=== PATIENT | female | born 1950 | race Caucasian/White ===

== ENCOUNTER 2016-12-06 07:54 | Day surgery (SDC) | payer MEDICARE, BC ==
[~2016-12-06 07:54] MED LIST: RINGERS SOLUTION,LACTATED 1,000 ML IV PRN; ceFAZolin SODIUM 2 GM in DEXTROSE 5 % IN WATER 50 ML IV PRN
--- OUTSIDE RECORDS SUMMARY | 2016-12-06 07:57 | XMS REPORT | Continuity of Care Document ---
:1950 Author Organization [facility] ([facility]) Address [address] [place] [address] Phone [phone] Care Team Providers Name Role Phone Unavailable Primary Care Provider Unavailable Source Comments This disclosure is being made pursuant to the Care Everywhere program, applicable federal and state laws, and may not contain all informaitonavailable regarding this patient.[facility] ([facility]) Active Allergies and Adverse Reactions Allergen Noted Date Severity Reactions Comments Other Agent Respiratory Distress,Cardiac Reaction to Isochlor Arrhythmia Current Medications Not on file Active Problems Not on file Social History Tobacco Use Types Packs/Day Years Used Date Never Assessed Last Filed Vital Signs Vital Sign Reading Time Taken Blood Pressure 134/70 02/25/2004 10:39 AM CDT Pulse 80 02/25/2004 10:39 AM CDT Temperature 37 C (98.6 F) 02/25/2004 10:39 AM CDT Respiratory Rate - - Height - - Weight 105.298 kg (232 lb 2.2 oz) 02/17/2005 12:31 PM CDT Body Mass Index - - Oxygen Saturation - - Plan of Care Health Maintenance Due Date Last Done Comments HCV Screening 1950 Hepatitis B Vaccine (1 of 3 - Primary Series) 1950 Tdap Vaccine 1963 Lipid Disorder Screening 1970 Td Vaccine 1970 Cervical Cancer Screening 1982 Mammogram 1992 Colonoscopy 2002 Zoster Vaccine 2012 Influenza Vaccine: Seasonal (#1) 03/29/2016 Results from Last 3 Months Not on file
[2016-12-06] MEDS ORDERED: RINGERS SOLUTION,LACTATED 1,000 ML IV ONE (08:36)
[2016-12-06] MEDS ORDERED: BUPIVACAINE HCL/EPINEPHRINE 50 ML VIAL IJ ONE (09:51)
[2016-12-06] MEDS ORDERED: RINGERS SOLUTION,LACTATED 1,000 ML IV PRN (10:29)
[2016-12-06] MEDS ORDERED: oxyCODONE HCL/ACETAMINOPHEN 1 TAB TABLET PO PRN (10:58)
[2016-12-06] MEDS ORDERED: oxyCODONE HCL/ACETAMINOPHEN 1 TAB TABLET PO ONE (11:15)
[2016-12-06 12:17] VITALS: BP 123/48
--- NOTE | 2016-12-06 20:01 | OR ---
Operative Report - Dictated Report Narrative: OPERATIVE REPORT DATE OF OPERATION: 12/06/2016 PREOPERATIVE DIAGNOSIS: Lipoma right posterior shoulder POSTOPERATIVE DIAGNOSIS: Same (pathology pending) OPERATION: Excision of lipoma the right posterior shoulder (13 x 10 x 3 cm) SURGEON: Buddy Claudio MD ANESTHESIA: GenGeovanni Angel CRNA INDICATIONS FOR PROCEDURE: The patient is a 66-year-old female with enlarging and increasingly symptomatic lipoma on the right posterior shoulder. She was initially scheduled for excision of this on 05/20/2016 however canceled. She is now brought for excision. FINDINGS: Large lipoma (pathology pending) NARRATIVE OF PROCEDURE: The patient was identified in the holding area, the surgical site was marked, and prior to the administration of anesthetic a multidisciplinary timeout was observed. The patient was placed supine and SCDs were applied. General endotracheal anesthetic was administered. The patient was then placed in the right lateral position with appropriate padding and monitoring. The right shoulder was then prepped with Betadine solution and the area around the lipoma isolated with 4 sterile towels. The remainder the patient was covered with a sterile disposable drape. A forefinger breath skin incision was outlined over the mass in the area infiltrated with 0.5% Marcaine with epinephrine. The skin incision was made sharply. Dissection was carried into subcutaneous tissue with electrocautery until a self-contained lipoma was encountered. This was gradually dissected free from the surrounding subcutaneous tissue by blunt and electrocautery dissection. The mass was delivered intact and submitted to pathology. The base of the wound was inspected and found to be hemostatic. After receiving a correct sponge needle and instrument count attention was turned to closing the wound. Subcutaneous space was approximated with interrupted sutures of 0 chromic. The skin was approximated with a running subcuticular suture of 4-0 Vicryl. The operative site was washed and dried. A dressing of Dermabond was applied. The operative procedure was terminated at this point. The patient tolerated the anesthetic and procedure well without complication. She was transferred to the recovery room and then back to ambulatory surgery awake extubated in stable condition. The patient remained stable throughout a period of postoperative observation. She denied incisional discomfort. The dressing remained dry. She was able to tolerate by mouth intake and was up without assistance. I shared the operative findings with her. She was discharged home with instructions not to engage in hazardous activity today but she may return to normal activity tomorrow and advance diet as tolerated. She is to keep the wound dry for 48 hours but then may shower. She has tramadol at home to take for discomfort. She has phone numbers to call for signs of wound infection or hematoma. A return office appointment was made for 1 week. Reviewed and electronically signed
== END 2016-12-06 07:55 | disposition home or self-care (01) ==
LOC: AMB 07:54
PROVIDERS: ATTEND Surgery
PROC: 0JBD0ZZ Excision of Right Upper Arm Subcutaneous Tissue and Fascia, Open Approach (ICD-10-PCS; 2016-12-06)
PROC: 0JQD0ZZ Repair Right Upper Arm Subcutaneous Tissue and Fascia, Open Approach (ICD-10-PCS; principal; 2016-12-06 09:00)
DX: D17.21 Benign lipomatous neoplasm of skin and subcutaneous tissue of right arm (principal); K21.9 Gastro-esophageal reflux disease without esophagitis; F41.9 Anxiety disorder, unspecified; F32.9 Major depressive disorder, single episode, unspecified; Z68.38 Body mass index [BMI] 38.0-38.9, adult

== ENCOUNTER 2017-07-25 12:01 | Emergency (ER) | payer MEDICARE, BC ==
[2017-07-25 12:25] LABS: Urine Bilirubin Negative (NEGATIVE); Urine Blood Negative /ul (NEGATIVE); Urine Ketone Negative (NEGATIVE); Urine Nitrite Negative (NEGATIVE); Urine Protein Negative (NEGATIVE); Urine Specific Gravity 1.015 SP.GR. (1.005-1.010); Urine Urobilinogen Normal (NORMAL); Urine pH 6.5 pH (5.0-7.0)
[2017-07-25] MEDS ORDERED: KETOROLAC TROMETHAMINE 30 MG/ML VIAL IV ONE (12:28)
[2017-07-25] MEDS ORDERED: ORPHENADRINE CITRATE 30 MG/ML VIAL IV ONE (12:28)
[2017-07-25] MEDS ORDERED: KETOROLAC TROMETHAMINE 30 MG/ML VIAL ONE (12:31)
[2017-07-25] MEDS ORDERED: ORPHENADRINE CITRATE 30 MG/ML VIAL ONE (12:32)
--- NOTE | 2017-07-25 12:38 | ERNOTE ---
Headache ER HPI - General Presenting Symptoms: headache Time Seen by Provider: 07/25/17 12:17 Source: patient Exam Limitations: no limitations - Immun/Allergies/Home Medications Immunizations: IMMUNIZATION HX Immunizations Up to Date No History of Influenza Vaccine No Hx Pneumococcal Vaccination No Allergies/Adverse Reactions: Allergies chlorpheniramine maleate [From Isoclor] Allergy (Intermediate, Verified 12:11) SOB codeine phosphate [From Isoclor] Allergy (Intermediate, Verified 07/25/17 12:11) SOB guaifenesin [From Isoclor] Allergy (Intermediate, Verified 07/25/17 12:11) SOB pseudoephedrine HCl [From Isoclor] Allergy (Intermediate, Verified 07/25/17 12: 11) SOB influenza virus vacc trivalent, spl [From Fluzone] Adverse Reaction ( Intermediate, Verified 07/25/17 12:11) VERY DIZZY, SICK FOR WEEKS Home Medications: HOME MEDICATIONS Albuterol Sulfate [Proair Hfa] 1 - 2 puff IH Q6H PRN 04/22/15 [Last Taken Unknown] Ascorbic Acid [Vitamin C] 500 mg PO BID 04/22/15 [Last Taken Unknown] Calcium/Magnesium/Vit D3 [Calcium 500 mg Tablet] 1 each PO DAILY 04/22/15 [Last Taken Unknown] Cholecalciferol (Vitamin D3) [Vitamin D] 1,000 unit PO DAILY 04/22/15 [Last Taken Unknown] Citalopram Hydrobromide [Celexa] 60 mg PO DAILY 04/22/15 [Last Taken Unknown] Melatonin/Pyridoxine HCl (B6) [Melatonin 10 mg Tablet] 1 each PO HS 04/22/15 [ Last Taken Unknown] Meloxicam [Mobic] 15 mg PO DAILY 04/22/15 [Last Taken Unknown] Multivitamins [Multivitamin Nohemy] 1 cap PO DAILY 04/22/15 [Last Taken Unknown] Humphreys-3 Fatty Acids/Fish Oil [Fish Oil 1,000 mg Capsule] 1 each PO BID 04/22/15 [Last Taken Unknown] Omeprazole [Prilosec] 20 mg PO BID 04/22/15 [Last Taken Unknown] lamoTRIgine [Lamictal] 50 mg PO HS 04/22/15 [Last Taken Unknown] lamoTRIgine [Lamictal] 100 mg PO BID 08/25/15 [Last Taken Unknown] traMADol HCL [Ultram] 50 mg PO Q4H PRN 04/22/15 [Last Taken Unknown] Acetaminophen [Tylenol] 1,000 mg PO Q8H PRN 12/02/16 [Last Taken Unknown] Fexofenadine/Pseudoephedrine [Bere-D 24 Hour Tablet] 1 each PO DAILY [Last Taken Unknown] Glucosa Bolanos 2Kcl/Chondroitin Bolanos [Glucosamine Chondroitin Caplet] 1 each PO BID [Last Taken Unknown] Sennosides/Docusate Sodium [Senna-S Tablet] 1 each PO DAILY PRN 12/02/16 [Last Taken Unknown] Vitamin B Complex 1 each PO DAILY 12/02/16 [Last Taken Unknown] Butalb/Acetaminophen/Caffeine [Esgic 50-325-40 mg Tablet] 1 each PO QID #20 tablet 07/25/17 [Last Taken Unknown] Meclizine HCl [Antivert] 25 mg PO TID PRN #20 tablet 07/25/17 [Last Taken Unknown] Prochlorperazine [Compazine] 25 mg RC BID PRN #14 supp.rect 07/25/17 [Last Taken Unknown] - History of Present Illness Narrative: Patient presents with an occipital headache that started 3 days ago and radiates up the occiput and over the top of the scalp. Recent pain is at least moderate in severity while she is able to look down without difficulty laying her head on a pillow reproduces the headache pain. Even looking up seems to cause some component of pain as well. Timing of Headache: gradual Quality: Present: achy Severity Maximum: Present: moderate Severity-Currently: Present: moderate Headache frequency: Present: occasional headaches Associated Symptoms: Reports: denies symptoms Exacerbated by:: Reports: light, noise Review of Systems - Review of Systems Constitutional: Present: See HPI EYE: Present: no symptoms reported ENT: Present: no symptoms reported Respiratory: Present: no symptoms reported Cardiology: Present: no symptoms reported Gastrointestinal/Abdominal: Present: no symptoms reported Genitourinary: Present: no symptoms reported Musculoskeletal: Present: See HPI, muscle pain Skin: Present: no symptoms reported Neurological: Present: See HPI Endocrine: Present: no symptoms reported Hematologic/Lymphatic: Present: no symptoms reported Psych: Present: no symptoms reported - Patient's Past Medical History Patient History - Medical: Anxiety, Arthritis, Depression, GERD, Other Patient History - Cardiac/Respiratory: Sleep Apnea, Other Patient History - Cancer: No Hx of Cancer Patient History - Surgical Procedures: Back Surgery, Cholecystectomy, Colonoscopy, D & C, EGD, Other Patient History - Other: None LMP (females 10-50): post - Family History Father Family History - Medical: , Other Family History - Cardiac/Respiratory: Other Family History - Cancer: Prostate Mother Family History - Medical: Hypothyroidism, Other Family History - Cardiac/Respiratory: CVA/Stroke, TIA, Other Family History - Cancer: Other Sister Family History - Medical: No pertinent hx Family History - Cardiac/Respiratory: Asthma Family History - Cancer: Thyroid - Social History Living Situations: home Abuse History: No History of abuse Psych History: Hx of Anxiety, Hx of Depression, Current tx/ever been on anti- depressants or anti-anxiety meds Smoking Status: Never smoker Alcohol Use: none Drug Use: none - Immunizations Immunizations Up to Date: No Hx Pneumococcal Vaccination: No History of Influenza Vaccine: No Physical Exam - Physical Exam General Appearance: Present: wd/wn, alert, moderate distress Head Exam: Present: tenderness - tenderness to palpation over the occipitalis muscle, other Eye Exam: Normal inspection: bilateral, PERRL: bilateral Ears, Nose, Throat: Present: normal ENT inspection, H, normal pharynx Neck: Present: other - tenderness to palpation appeared to be more at the atlanto-occipital junction and up into the occipital area along the distribution of the occipitalis muscle Respiratory: Present: no respiratory distress, normal breath sounds, no accessory muscle use, chest nontender, lungs clear Cardiovascular/Chest: Present: regular rate, rhythm, no murmur, normal peripheral pulses Gastrointestinal/Abdominal: Present: normal bowel sounds, nontender, nondistended, soft, no organomegaly Rectal Exam: Present: deferred Back Exam: Present: normal inspection, normal range of motion Extremity Exam: Present: normal inspection, non-tender, no edema, normal range of motion Neurological Exam: Present: alert, oriented, normal mood/affect, no motor/ sensory deficits, manager combination II-XII nml as tested, normal cerebellar test, other - negative HINTS exam Skin Exam: Present: normal color, warm/dry Lymphatic Exam: Present: no adenopathy ED Progress - Vital Signs Patient's Vital Signs:: I have reviewed the patient's vital signs. Vital Signs: Vital Signs 07/25/17 12:07 Temperature 35.7 C L Pulse Rate 80 Respiratory 16 Rate Blood Pressure 154/87 O2 Sat by Pulse 96 Oximetry - CT/Ultrasound CT/Ultrasound Narrative: CT the head was reviewed - Progress/Reassessment Chief Complaint: Headache Progress:: Improved Plan - Plan Plan: The patient appeared with sort of a mixed bag of symptoms. She had aspects of a migraine type headache, with the nausea and photophobia and the throbbing nature to the headache. She also has some symptoms of a tension headache more I think going up from the occipitalis muscle and going up through the galea. She also appeared to have a component of vertigo. All of the symptomatology was improved by the Tuesday medications given here in the emergency department. Patient will be given a prescription for Compazine suppositories that she can take Benadryl, Esgic-Plus for the muscle tension type component and Antivert for a persistent vertigo. Patient had no evidence of any posterior circulation involvement so I believe this is all vertigo and will be treated appropriately. She was given instructions to follow-up with her family physician. Departure Clinical Impression: Tension headache, Vertigo Migraine Qualifiers: Migraine type: with aura Status migrainosus presence: with status migrainosus Intractability: not intractable Qualified Code(s): G43.101 - Migraine with aura , not intractable, with status migrainosus - Departure Disposition: Home self-care Condition: Good Instructions: Migraine Headache, [id number], Tension Headache, [id number], Vertigo, [id number] Referrals: Trupti Luciano MD [Primary Care Provider] - Prescriptions: Butalb/Acetaminophen/Caffeine [Esgic 50-325-40 mg Tablet] 1 each PO QID #20 tablet Meclizine HCl [Antivert] 25 mg PO TID PRN #20 tablet PRN Reason: Vertigo Prochlorperazine [Compazine] 25 mg RC BID PRN #14 supp.rect PRN Reason: Headache
[2017-07-25 12:41] LABS: Urine Appearance Clear; Urine Bacteria 1+; Urine Color Yellow; Urine RBC None Seen /hpf (0-5); Urine WBC TRACE /hpf (0-5)
[2017-07-25] MEDS ORDERED: NORMAL SALINE 1,000 ML IV ONE (13:03)
[2017-07-25] MEDS ORDERED: METOCLOPRAMIDE HCL 5 MG/ML VIAL IV ONE (13:03)
[2017-07-25] MEDS ORDERED: diphenhydrAMINE HCL 50 MG/ML VIAL IV ONE (13:03)
[2017-07-25] MEDS ORDERED: diphenhydrAMINE HCL 50 MG/ML VIAL ONE (13:09)
[2017-07-25] MEDS ORDERED: METOCLOPRAMIDE HCL 5 MG/ML VIAL ONE (13:10)
[2017-07-25] MEDS ORDERED: MECLIZINE HCL 25 MG TABLET PO ONE (13:43)
[2017-07-25] MEDS ORDERED: MECLIZINE HCL 25 MG TABLET ONE (13:45)
[2017-07-25 16:51] VITALS: BP 148/71
== END 2017-07-25 14:30 | disposition home or self-care (01) ==
LOC: ER 12:01
DX: G44.209 Tension-type headache, unspecified, not intractable (principal); R42 Dizziness and giddiness; G43.101 Migraine with aura, not intractable, with status migrainosus; M19.90 Unspecified osteoarthritis, unspecified site; K21.9 Gastro-esophageal reflux disease without esophagitis; F41.8 Other specified anxiety disorders